=== PATIENT | male | born 1940 | race Caucasian/White ===

== ENCOUNTER 2025-05-21 09:41 | Outpatient (AMB) | payer MEDICARE, OTHER, SELFPAY ==
--- NOTE | 2025-05-21 09:43 | A.OFFPC_ITS ---
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 ?? Prior PCP:? Susanna Last office visit/CPE:? May Acute issue(s):? 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 Stable. Last MRI 1 yr ago. ?? PMHx:? 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 h/o Alcoholism, Hemochromatosis - Dr Tse Heme-Onc - Annual Phelebotomy, IgG Deficiency. SurgHx:?Appendix. SocHx:? Nonsmoker, EtOH Quit Sept after Stroke. No drugs. PFSH Medical History (Updated 05/21/25 @ 11:35 by Gurvinder Mills) High blood pressure Asthma Common variable immunodeficiency A-fib Stroke (cerebrum) Concussion Cataract Appendicitis Surgical History (Updated 05/21/25 @ 09:54 by Rosa You MA) History of cardiac catheterization Family History (Updated 05/21/25 @ 10:32 by Rosa You MA) Father Cardiovascular disease Maternal Grandmother Cardiovascular disease Sister Alcohol abuse Brother Cancer High cholesterol Social History (Updated 05/21/25 @ 10:32 by Rosa You MA) Housing: Apartment Patient Tobacco Use Status: Never used Tobacco e-Cigarette/Vaping Use: Never Used Second Hand Smoke Exposure: No service: No Current occupational status: retired Cognitive needs: No Hearing needs: Yes Vision needs: Yes Questionnaire PHQ-9 Over the last 2 weeks, how often have you been bothered by any of the following problems? 1. Little interest or pleasure in doing things: nearly every day 2. Feeling down, depressed, or hopeless: not at all 3. Trouble falling or staying asleep, or sleeping too much: not at all 4. Feeling tired or having little energy: not at all 5. Poor appetite or overeating: not at all 6. Feeling bad about yourself - or that you are a failure or have let yourself or your family down: not at all 7. Trouble concentrating on things, such as reading the newspaper or watching television: not at all 8. Moving or speaking so slowly that other people could have noticed. Or the opposite - being so fidgety or restless that you have been moving around a lot more than usual: not at all 9. Thoughts that you would be better off or of hurting yourself in some way: not at all Total score: 3 Depression Screening Interpretation: Negative Depression Screening Done: Yes 11098 - PHQ-9 Billing: Yes Source: Developed by Drs. Flavio Ibarra, Nadine Whitlock, Chris Dickinson and colleagues, with an educational sheri from [employer]. Thrive Questionnaire Date Thrive assessed: 05/21/25 I am a: Patient What is your living situation today?: I have a steady place to live Within the past 12 months, did the food you bought not last and you didn't have the money to get more?: Never true Within the past 12 months, did you worry whether your food would run out before you got money to buy more?: Never true Do you have trouble paying for medicines?: No Do you have trouble getting transportation to medical appointments?: No Do you have trouble paying your heating and electricity bill?: No Do you have trouble taking care of your child, family member or friend?: No Do you have trouble with day-to-day activities such as bathing, preparing meals, shopping, managing finances, etc.?: No Are you currently unemployed and looking for a job?: No Are you interested in more education?: No Please select the resources that you would like help with: None Currently or been in a relationship where the following occur: No concerns reported THRIVE Score: 0 AUDIT C Alcohol Use Questionnaire (AUDIT-C) 1. How often do you have a drink containing alcohol?: Never (he quit 47 days ago) 3. How often do you have six or more drinks on one occasion?: Never Total Score: 0 Score Reviewed/Action Taken: Yes GLORIA-7 AMB Questionnaire GLORIA-7 Date GLORIA - 7 assessed: 05/21/25 Feeling nervous, anxious, or on edge: 0 = Not at all Not being able to stop or control worryin = Not at all Worrying too much about different things: 0 = Not at all Trouble relaxin = Not at all Being so restless that it is hard to sit still: 0 = Not at all Becoming easily annoyed or irritable: 0 = Not at all Feeling afraid as if something awful might happen: 0 = Not at all Total GLORIA-7 score (0-4 normal; 5-9 mild; 10-14 moderate; 15-21 severe): 0 Source: Developed by Drs. Flavio Ibarra, Nadine Whitlock, Chris Dickinson and colleagues, with an educational sheri from [employer]. GLORIA-7 Assessment Billing GLORIA-7 Assessment Tool: GLORIA-7 Assessment 32833 ACT Questionnaire In the past 4 weeks, how much of the time did your asthma keep you from getting as much done at work, school or at home?: None of the time During the past 4 weeks, how often have you had shortness of breath?: Not at all During the past 4 weeks, how often did your asthma symptoms wake you up at night or earlier than usual in the morning?: 4 or more nights a week During the past 4 weeks, how often have you had to use your rescue inhaler or nebulizer medication?: Not at all How would you rate your asthma control during the past 4 weeks?: Well controlled Score: 20 Review of Systems Const Denies chills, Denies fatigue, Denies fever(s), Denies headache(s) and Denies weakness ENT Denies dizziness and Denies headache(s) Card Denies chest pain, Denies lightheadedness, Denies dyspnea and Denies other (Palpitations) Resp Denies cough, Denies dyspnea, Denies wheezing and Denies other ( shortness of breath) Musc Denies numbness and Denies tingling Neuro Denies dizziness, Denies headache(s), Denies numbness, Denies tingling, Denies paresthesias and Denies weakness Psych Denies anxiety and Denies depression Endo Denies fatigue Aller/Immun Denies wheezing Physical exam (Primary Care) Vital Signs: Last Vital Signs Temp 97.5 F 05/21/25 10:32 Pulse 76 05/21/25 10:32 Resp 16 05/21/25 10:32 BP 104/78 05/21/25 10:32 Pulse Ox 98 05/21/25 10:32 Oxygen Delivery Method Room Air 05/21/25 10:32 BMI result Body Mass Index 26.3 Tobacco/Smoking Status: Tobacco use Status Tobacco use date assessed 05/21/25 05/21/25 09:56 Patient Tobacco Use Status Never used Tobacco 05/21/25 10:38 e-Cigarette/Vaping Use Never Used 05/21/25 10:38 PHQ-9: PHQ-9 Score PHQ-9: Total score 3 05/21/25 10:58 Depression Screening Interpretation: Negative Thrive Assessment: Date of Thrive Assessment Date Thrive assessed 05/21/25 05/21/25 09:45 Currently or been in a relationship where the following occur: No concerns reported Const General: no acute distress and well developed Nutritional Appearance: well nourished Orientation/consciousness: patient oriented x3 [facility] Head: Yes normocephalic and Yes atraumatic Eyes General: appearance normal, both eyes and all related structures Pupils: Equal, round and reactive pupils present EOM: EOMs intact bilaterally Resp Effort & Inspection: normal respiratory effort Auscultation: clear to auscultation bilaterally Cardio Rate: regular rate Rhythm: regular rhythm Heart sounds: S1 normal heart sound present, S2 normal heart sound present, no gallops, no murmurs and no rubs Neuro General: patient oriented x3 and gait normal Cranial nerves: Yes Equal, round and reactive pupils present Psych Affect: normal affect Coding Level of Care Code New Pt Level 4 (72135) Diagnoses High blood pressure I10 Hyperlipidemia E78.5 A-fib I48.91 Schwannoma D36.10 CAD (coronary artery disease) I25.10 History of stroke Z86.73 Screening for prostate cancer Z12.5 Hemochromatosis E83.119 IgG deficiency D80.3 History of alcoholism F10.21 Laboratory exam ordered as part of routine general medical examination Z00.00 Additional Codes GLORIA-7 Assessment Billing - GLORIA-7 Assessment Tool: GLORIA-7 Assessment 84221 ([id number]) PHQ-9 - 32259 - PHQ-9 Billing: Yes ([id number]) Assessment & Plan Assessment & Plan (1) High blood pressure: Code(s): I10 - Essential (primary) hypertension Category: Medical Plan: Patient is taking amlodipine 10 mg daily. Recently systolic blood pressures have been in the 90s and he is typically in the low 100s Recommended he take half of his amlodipine and check his blood pressures throughout the day. If systolic blood pressures greater than 125 he will take the other half. He likes to bring in a log of his blood pressure so we can review and if he is no longer needing a full 10 mg per day, we will adjust his medication. (2) Hyperlipidemia: Code(s): E78.5 - Hyperlipidemia, unspecified Category: Medical Plan: He is on rosuvastatin Checking lipids (3) A-fib: Code(s): I48.91 - Unspecified atrial fibrillation Category: Medical Plan: Recently diagnosed with atrial fibrillation in April after a stroke Heart rate is less than 100 He is on Eliquis Follow-up with Cardiology as recommended (4) Schwannoma: Code(s): D36.10 - Benign neoplasm of peripheral nerves and autonomic nervous system, unspecified Category: Medical Plan: Patient wants follow-up Q 3 years by MRI as his prior PCP was monitoring Last MRI was a year ago We can discuss in 2 years (5) CAD (coronary artery disease): Code(s): I25.10 - Atherosclerotic heart disease of [place] coronary artery without angina pectoris Category: Medical Plan: Patient is on rosuvastatin Blood pressure is well controlled He has nitroglycerin but says he never gets any anginal symptoms Follow-up with Dr. Stewart (6) History of stroke: Code(s): Z86.73 - Personal history of transient ischemic attack (TIA), and cerebral infarction without residual deficits Category: Medical Plan: Recent history of CVA in April Minimal residual symptoms - he notes that his writing is slower. Otherwise normal strength and speech and cognition Continue Eliquis for stroke prevention Continue rosuvastatin Maintain good blood pressure control (7) Screening for prostate cancer: Code(s): Z12.5 - Encounter for screening for malignant neoplasm of prostate Category: Medical Plan: Check PSA Patient would like to continue screening (8) Hemochromatosis: Code(s): E83.119 - Hemochromatosis, unspecified Category: Medical Plan: Followed by Hematology-Oncology (9) IgG deficiency: Code(s): D80.3 - Selective deficiency of immunoglobulin G [IgG] subclasses Category: Medical Plan: Patient had been followed for IgG deficiency by immunology He was told no longer needs to follow-up for this (10) History of alcoholism: Code(s): F10.21 - Alcohol dependence, in remission Category: Medical Plan: History of alcoholism and patient has stopped drinking in April after his stroke Continue abstinence (11) Laboratory exam ordered as part of routine general medical examination: Code(s): Z00.00 - Encounter for general adult medical examination without abnormal findings Category: Medical Plan: Check labs Orders: Orders Microalbumin, Random (w Creat) Today I10 - Essential (primary) hypertension Lipid Panel Today Z00.00 - Encounter for general adult medical examination without abnormal findings TSH reflex Free T4 Today Z00.00 - Encounter for general adult medical examination without abnormal findings UA CC w/rflx Micro + Cult Today Z00.00 - Encounter for general adult medical examination without abnormal findings Comprehensive [place]. Panel Fast Today Z00.00 - Encounter for general adult medical examination without abnormal findings Complete Blood Count Auto Diff Today Z00.00 - Encounter for general adult medical examination without abnormal findings
[2025-05-21 10:32] VITALS: BP 104/78; PULSE 76; RESP 16; TEMP 36.4; O2SAT 98; BMI 26.3
== END 2025-05-21 11:28 | disposition home or self-care (01) ==
LOC: HO.HMCFM 09:42
PROVIDERS: PCP Family Medicine; Visit Provider Family Medicine
DX: I10 Essential (primary) hypertension (principal); E78.5 Hyperlipidemia, unspecified; I48.91 Unspecified atrial fibrillation; D36.10 Benign neoplasm of peripheral nerves and autonomic nervous system, unspecified; I25.10 Atherosclerotic heart disease of native coronary artery without angina pectoris; Z86.73 Personal history of transient ischemic attack (TIA), and cerebral infarction without residual deficits; Z12.5 Encounter for screening for malignant neoplasm of prostate; E83.119 Hemochromatosis, unspecified; D80.3 Selective deficiency of immunoglobulin G [IgG] subclasses; F10.21 Alcohol dependence, in remission; Z00.00 Encounter for general adult medical examination without abnormal findings

== ENCOUNTER → 2025-05-21 09:41 | Outpatient (BNVA) | payer MEDICARE, OTHER, SELFPAY | PROVIDERS: PCP Family Medicine; Visit Provider Family Medicine | DX: Z00.00 Encounter for general adult medical examination without abnormal findings (principal); I10 Essential (primary) hypertension; Z86.73 Personal history of transient ischemic attack (TIA), and cerebral infarction without residual deficits; I48.91 Unspecified atrial fibrillation; I25.10 Atherosclerotic heart disease of native coronary artery without angina pectoris; E78.5 Hyperlipidemia, unspecified; D36.10 Benign neoplasm of peripheral nerves and autonomic nervous system, unspecified; E83.119 Hemochromatosis, unspecified; D80.3 Selective deficiency of immunoglobulin G [IgG] subclasses; F10.21 Alcohol dependence, in remission | CPT/HCPCS: 96127; 96160; 99202 ==

== ENCOUNTER 2025-05-22 11:11 | Outpatient (REF) | payer MEDICARE, OTHER, SELFPAY ==
[2025-05-22 14:12] LABS: MANUAL DIFF FLAG NO
--- OUTSIDE RECORDS SUMMARY | 2025-05-22 14:19 | XMS_ITS | Data Portability ---
Author Organization [place] - [facility] Address [address] [place] [id number] Care Team Providers Care Property Valuer Name Role Phone KASSY KITCHEN Primary Care Provider Assessment Encounter Date Assessment Date Assessment LastModified by Organization Details LastModified Time 09/19/2024 09/19/2024 2 year interval MRI scan reviewed with the patient personally. This shows no signs of change in size or character of the right internal auditory canal lesion, which remains consistent with stable, non-growing acoustic neuroma. I've recommended continued observation with follow-up MRI scan in 3 years, which we will arrange for the patient. Patient was instructed to contact me if they experience any sudden changes in hearing, balance, or facial function. [email or web address] Not available 09/19/2024 15:57:09 10/21/2024 10/21/2024 Right hearing device was found to be in need of repair. Post repair, the patient would like to continue using the device without any changes to programming or any components. Patient's schwannoma is essentially stable and reprogramming was not recommended given the patient's satisfaction with sound quality. Recommend continued annual appointments to ensure that the devices are working to their best potential and to rule out any changes in hearing or need to reprogram the devices. Urgent visits can always be requested or the patient can also utilize our drop-off repair program. [email or web address] Not available 10/21/2024 14:51:56 Plan of Treatment Reminders Order Date Submit Date Provider Last Modified By Organization Details Last Modified Time Details Appointments None recorded. Lab None recorded. Referral None recorded. Procedures None recorded. Surgeries None recorded. Imaging MRI, brain + internal auditory canal, w/wo contrast - MRI, BRAIN + INTERNAL AUDITORY CANAL, W/WO CONTRAST, please schedule August 202708/07/2 028 [email or web address] [facility], [address], [address], [place], [address], 5 16:01:44 Medication Orders None recorded. Patient TargetsNo targets recorded. Patient InstructionsNo instructions recorded. Reason for Referral None Reported. Results Created Date Observation Date Name Description Value Unit Range Abnormal Flag Note LastModifiedBy Organization Detail LastModifiedTime 09/04/19 25 08/30/2024 MRI, brain + inter nal audit ory canal , w/wo contr ast No observ ation record ed. [email or web address] [facility] [place] [address] [facility] [address], [place], [address], 09/16/2024 13:54:57 Result Notes None recorded. 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 Medical Equipment None Reported. Medications Name Sig Start Date Stop Date Status Note LastModified by Organization Details LastModified Time Prescripti on - Prior Authorizat ion Request active Script Copy/Prio r Auth^Scri pt Copy/Prio r Auth_2022 115 Not Available Not Available Not Available alendronat e 70 mg tablet 2019 active Medicatio n ID: [id number] Du ration Value: 84 Brand Name: alendrona te Send Method: E-Prescri bed Subs Allowed: subs OK Specia l Instructi on: TAKE 1 TABLET BY MOUTH EVERY WEEK [facility] ericName: alendrona te Not Available Not Available Not Available amoxicilli n 875 mg tablet TAKE 1 TAB BY MOUTH TWICE A DAY X 4 DAYS, STARTING THE DAY AFTER SURGERY active Not Available Not Available No t Available amlodipine 10 mg tablet TAKE 1 TABLET DAILY active Not Available Not Available No t Available nitroglyce rin 0.[address] 1 TABLET UNDER THE TONGUE AND ALLOW TO DISSOLVE EVERY 5 MINUTES NEEDED FOR CHEST PAIN NOT TO EXCEED 3 DOSES/15 MINTES IF PAIN PERSISTS, SEEK MEDICAL ATTENTION active Not Available Not Available No t Available montelukas t 10 mg tablet 2019 active Medicatio n ID: [id number] Du ration Value: 90 Brand Name: monteluka st Send Method: E-Prescri bed Subs Allowed: subs DELLA Morenoia l Instructi on: TAKE 1 TABLET BY MOUTH DAILY BEFORE DINNER De dicationG enericNam e: monteluka st Not Available Not Available Not Available albuterol sulfate HFA 90 mcg/actuat ion aerosol inhaler INHALE 2 PUFFS EVERY 4 HOURS NEEDED FOR WHEEZE OR SHORTNESS OF BREATH active Not Available Not Available No t Available Vitamin D3 25 mcg (1,000 unit) capsule 2019 active Medicatio n ID: [id number] Br and Name: Vitamin D3 Send Method: E-Prescri bed Subs Allowed: subs OK Medica tionGener icName: Vitamin D3 Not Available Not Available Not Available rosuvastat in 20 mg tablet TAKE 1 TABLET DAILY active Not Available Not Available No t Available Combivent Respimat 20 mcg-100 mcg/actuat ion solution for inhalation 2019 active Medicatio n ID: [id number] Br and Name: Combivent Respimat Send Method: E-Prescri bed Subs Allowed: subs OK Medica tionGener icName: Combivent Respimat Not Available Not Available Not Available Wixela Inhub 100 mcg-50 mcg/dose powder for inhalation USE 1 INHALATIO N ORALLY TWICE DAILY.RIN SE MOUTH ANDTHROAT AFTER USE active Not Available Not Available No t Available Vitals Date Recorded Body height Body mass index (BMI) Body weight Provider Name and Address Organization Details Last Updated DateTime 09/19/2024 172.72 cm 26.3 kg/m2 96538.48 g Aurora Glover [place] - [facility] 09/19/2024 15:44:57 Social History None recorded. Functional Status None recorded. Mental Status None recorded. Family History Nothing Reported. Medical History No medical history recorded. Past Encounters Encounter ID Performer Location Encounter Start Date Encounter Closed Date Diagnosis/Indication Diagnosis SNOMED-CT Code Diagnosis ICD10 Code Diagnosis IMO Codes Diagnosis Note [id number] GAUDENCIO MERCADO MD [facility] [address] [place] [address] 09/19/2024 14:42:25 09/19/2024 16:01:44 Benign neoplasm of cranial nerve 02817681 D33.3 Sensorineu ral hearing loss of bilateral ears 020507544 H90.3 Patient using binaural amplificat ion dispensed through our office. I recommende d audiometri c testing today, but he did not have time for that due to his being sick at home. He has not been back to see [place] since his hearing aids were dispensed. We will set up a visit for him to come in and get an audiogram followed by hearing aid maintenanc e visit and programmin g with [place]. [id number] Santiago CHAPIN GARD[place] [facility] [place] [facility] ite [address] [place] [phone] 10/21/2024 13:50:41 10/28/2024 13:29:21 Sensorineural hearing loss of bilateral ears 147461427 H90.3 Health Concerns Section Related Observation LastModified by Organization Detai ls LastModified Time None Recorded Concern Status LastModified by Organization Details LastModified Time None Recorded Advance Directives Directive None Recorded Payers Insurance Date Sequence Insurance Name Policy Number Policy Quarles Covered Member ID Quarles Member ID Guarantor Name 09/19/2024 2 [facility] Jose Kurtz [id number] Jose Kurtz 10/28/2024 2 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 Patient comes in today for most recent 2 year MRI review. Patient notes no hearing changes in comparison to last visit. No facial twitching or weakness. No new balance disturbance. Patient currently using binaural amplification dispensed through our office. GAUDENCIO MERCADO MD [address] [facility],[address], [address], [place] - [facility] 09/19/2024 16:02:01 10/21/2024 text/html Hearing Technolo gy HistoryReported by PatientReported status of current hearing technologyFor reported condition, patient reportsdead (right). For sound quality and programming settings, patient reportsthat they are satisfied with current settings and technology. For daily use, patient reportsconsistent use of technology. Patient returned for their annual fitting of amplification to discuss their ongoing communication needs and progress with amplification.. They were recently seen by Dr. Mercado and a recent MRI showed no growth of the tumor in the right ear. The devices are out of warranty at this time. Patient returned for their annual fitting of amplification to discuss their ongoing communication needs and progress with amplification. They reported a change in their hearing. The devices are in warranty at this time. Santiago CHAPIN [address] [facility],[address], [address], [facility] - [facility] 10/21/2024 14:53:02
[2025-05-22 14:22] LABS: Hematocrit 46.0 % (42.0-52.0); Hemoglobin 15.5 g/dl (14.0-18.0); Imm Gran Abs Auto 0.01 X10*3/uL (0.00-0.03); Imm Gran Pct Auto 0.2 % (0.0-0.4); Lymphocytes Absolute Auto 1.5 X10*3/uL (1.2-4.9); Mean Corpuscular HGB Conc 33.7 g/dl (31.0-36.0); Mean Corpuscular Hemoglobin 33.6 pg (27.0-33.0); Mean Corpuscular Volume 99.8 fL (80.0-98.0); NRBC Abs Auto 0.000 X10*3/uL (0.0-0.012); NRBC Pct Auto 0.0 /100WBC (0.0-0.2); Platelet Count 208 X10*3/uL (160-400); Red Blood Count 4.61 X10*6/uL (4.60-5.80); White Blood Count 5.1 X10*3/uL (4.8-10.8)
[2025-05-22 15:02] LABS: Alanine Aminotransferase 31 U/L (0-40); Albumin Level 4.5 g/dL (3.5-5.0); Alkaline Phosphatase 96 U/L (39-117); Anion Gap 11 (12-20); Aspartate Amino Transferase 33 U/L (5-37); Blood Urea Nitrogen 16 mg/dL (9-16); Calcium 9.2 mg/dL (8.4-10.2); Carbon Dioxide 27 mmol/L (22-29); Chloride 111 mmol/L (96-108); Cholesterol 136 mg/dL (<200); Estimated Glomerular Filt Rate > 60; HDL Cholesterol 53 mg/dL (>40); Potassium 4.1 mmol/L (3.3-5.1); Sodium 145 mmol/L (135-145); Total Protein 6.7 g/dL (6.5-8.0); Triglycerides 75 mg/dL (<150)
[2025-05-22 17:50] LABS: Appearance Urine Clear; Glucose Urine UA Negative (Negative); PH 6.0 (5.0-9.0); Specific Gravity - Urine 1.020 (1.005-1.025)
== END 2025-05-22 11:12 | disposition home or self-care (01) ==
LOC: HO.WFDLDS 11:11
PROVIDERS: Visit Provider Family Medicine
DX: Z00.00 Encounter for general adult medical examination without abnormal findings (principal); I10 Essential (primary) hypertension
CPT/HCPCS: 36415; 80053; 80061; 81003; 82570; 84443; 85025